=== PATIENT | female | born 1940 | race Caucasian/White ===

== ENCOUNTER 2022-03-28 04:23 | Emergency (ER) | payer OTHER ==
[~2022-03-28] VITALS: Ht 152.4 cm; Wt 66.9 kg
[2022-03-28] MEDS ORDERED: HYDROXYZINE HCL25 MG PO (04:52)
[2022-03-28] MEDS ORDERED: ESCITALOPRAM OXA5 MG PO (04:52)
[2022-03-28] MEDS ORDERED: ALENDRONATE SOD70 M1 PO (04:52)
[2022-03-28] MEDS ORDERED: LORAZEPAM0.5 MG PO (04:53)
[2022-03-28] MEDS ORDERED: MIRTAZAPINE15 M2 PO (04:53)
[2022-03-28] MEDS ORDERED: LISINOPRIL40 MG PO (04:53)
[2022-03-28] MEDS ORDERED: VITAMIN B121000 MC1 PO (04:55)
[2022-03-28] MEDS ORDERED: PRESERVISION A1 EAC3 PO (04:55)
[2022-03-28 04:58] LABS: BILIRUBIN Negative (Negative); BLOOD Negative (Negative); CLARITY Clear (Clear); COLOR Yellow (Yellow); GLUCOSE Negative (Negative); KETONE Negative (Negative); LEUKO ESTERASE Negative (Negative); NITRITE Negative (Negative); UROBILINOGEN 0.2 E.U./dl (0.0-1.0)
[2022-03-28 05:07] LABS: BACTERIA TRACE
== END 2022-03-28 08:40 | disposition home or self-care (01) ==
LOC: ED 04:23
PROVIDERS: Internal Medicine
DX: F03.90 Unspecified dementia, unspecified severity, without behavioral disturbance, psychotic disturbance, mood disturbance, and anxiety (principal); Z79.899 Other long term (current) drug therapy